=== PATIENT | female | born 1965 | race Caucasian/White ===

== ENCOUNTER → 2018-01-23 | Outpatient (CLI) | payer OTHER ==
--- NOTE | 2018-01-23 17:37 | DIAGNOSTIC IMAGING REPORT ---
R VENOUS DOPP LOWER EXT UNILAT HISTORY: 52 years-old Female RT LEG PAIN/SWELLING acute right leg pain and swelling COMPARISON: None available TECHNIQUE: Multiple real-time sonographic images of the right lower extremity deep venous structures were obtained assessing grayscale appearance, color and spectral flow FINDINGS: There is normal flow, compressibility, phasicity and augmentation within the right lower extremity deep venous structures. IMPRESSION: No sonographic evidence of deep venous thrombosis. The above report was generated using voice recognition software. It may contain grammatical, syntax or spelling errors. Electronically signed by: Uli Ronquillo M.D. 01/23/2018 5:36 PM Dictated Date/Time: 01/23/2018 5:35 PM
== END | disposition home or self-care (01) ==
LOC: C.ULTR 17:03
PROVIDERS: ATTEND Physician Assistant
DX: M79.661 Pain in right lower leg (principal); R60.9 Edema, unspecified